=== PATIENT | male | born 1960 | race African-American/Black ===

== ENCOUNTER 2025-02-06 12:02 | Observation (INO) | payer MEDICARE ==
[~2025-02-06] VITALS: Ht 152.4 cm; Wt 88.6 kg
[2025-02-06] MEDS ORDERED: METO37.5 PO (12:20)
[2025-02-06 12:43] LABS: BASO # 0.1 10^3/uL (0.0-0.2); BASO % 0.5 % (0.0-1.0); EOS # 0.3 10^3/uL (0.0-0.5); EOS % 1.8 % (0.0-3.0); LYMPH # 3.1 10^3/uL (1.5-5.0); LYMPH % 16.9 % (24.0-44.0); MONO # 1.3 10^3/uL (0.0-0.8); MONO % 7.4 % (2.0-8.0); NEUTROPHILS # 13.1 10^3/uL (1.5-8.5); NEUTROPHILS % 73.0 % (36.0-66.0); PLATELET COUNT, AUTOMATED 582 10^3/uL (150-450)
[2025-02-06 13:09] LABS: ALT/SGPT < 9 U/L (7.0-40); AST/SGOT 14 U/L (<34); CALCIUM LEVEL 9.9 MG/DL (8.3-10.6); CARBON DIOXIDE LEVEL 22 MMOL/L (20-31); CHLORIDE LEVEL 101 MMOL/L (98-107); CREATININE FOR GFR 1.20 MG/DL (0.70-1.30); GLOMERULAR FILTRATION RATE 67.1 (>49); POTASSIUM SERUM 3.9 MMOL/L (3.5-5.1); SODIUM LEVEL 141 MMOL/L (136-145)
[2025-02-06] MEDS: ACETAMINOPHEN *IV* 1,000 MG in IV 1 EA IV ONE (15:52)
[2025-02-06] MEDS: NS (Normal Saline) 0.9% 1,000 ML IV ONE (15:53)
[2025-02-06 16:07] LABS: C REACTIVE PROTEIN QUANTITATIV 5.30 MG/DL (<1.0)
[2025-02-06 17:38] LABS: KETONE, URINE AUTO RFX 1+ mg/dL (NEGATIVE); MUCUS, URINE RFX SMALL (NEGATIVE); NITRITE, URINE AUTO RFX NEGATIVE (NEGATIVE); RBC, URINE AUTO RFX 2 /HPF (0-3); SQUAM EPITHELIAL CELL UR AURFX 1 /HPF (0-6)
[2025-02-06 19:01] LABS: LEUKOCYTE ESTERASE UR AUTO RFX TRACE (NEGATIVE); WBC, URINE AUTO RFX 20 /HPF (0-3)
[2025-02-06 22:45] VITALS: TEMP 97; O2SAT 100
[2025-02-06 23:30] VITALS: BP 177/94; TEMP 97; O2SAT 97
[2025-02-06] MEDS ORDERED: PILL CUTTER 1 EACH XX PRN (23:45)
[2025-02-06] MEDS: METOPROLOL TART 25 MG TABLET PO ONE (23:50)
[2025-02-07] VITALS (9 sets, daily range): BP systolic 138–177; BP diastolic 81–108; TEMP 96.5–97.6; O2SAT 99–100
[2025-02-07 06:10] LABS: CALCIUM LEVEL 9.6 MG/DL (8.3-10.6); CARBON DIOXIDE LEVEL 23.0 MMOL/L (20-31); CHLORIDE LEVEL 106.0 MMOL/L (98-107); CREATININE FOR GFR 1.04 MG/DL (0.70-1.30); GLOMERULAR FILTRATION RATE 79.7 (>49); POTASSIUM SERUM 4.4 MMOL/L (3.5-5.1); SODIUM LEVEL 144.0 MMOL/L (136-145)
[2025-02-07] MEDS ORDERED: GLUCAGON INJ 1 MG VIAL SC PRN (07:20)
[2025-02-07] MEDS ORDERED: GLUCOSE 4 GM CHEW PO PRN (07:20)
[2025-02-07] MEDS ORDERED: DEXTROSE 50% 50 ML SYRINGE IV PRN (07:20)
[2025-02-07 08:26] LABS: BASO # 0.1 10^3/uL (0.0-0.2); BASO % 0.6 % (0.0-1.0); EOS # 0.3 10^3/uL (0.0-0.5); EOS % 2.4 % (0.0-3.0); LYMPH # 2.3 10^3/uL (1.5-5.0); LYMPH % 18.3 % (24.0-44.0); MONO # 1.3 10^3/uL (0.0-0.8); MONO % 10.3 % (2.0-8.0); NEUTROPHILS # 8.5 10^3/uL (1.5-8.5); NEUTROPHILS % 67.9 % (36.0-66.0); PLATELET COUNT, AUTOMATED 538 10^3/uL (150-450)
[2025-02-07] MEDS ORDERED: METO1TAB7 PO (08:29)
[2025-02-07] MEDS ORDERED: HOME MED LIST COMPLETE! XX SCH (08:35)
[2025-02-07] MEDS ORDERED: METOPROLOL TART 12.5 MG PER 1/2 TAB PO SCH (09:00)
[2025-02-07] MEDS: DICLOFENAC EPOLAMINE 1.3% PATCH TOP SCH (09:27)
[2025-02-07] MEDS: METOPROLOL SUCC. 50 MG *XL* TAB PO SCH (09:27)
[2025-02-07] MEDS: PANTOPRAZOLE 40MG VIAL IV SCH (09:28)
[2025-02-07] MEDS: ACETAMINOPHEN 500 MG TAB PO SCH (09:28)
[2025-02-07] MEDS: ENOXAPARIN 40 MG/0.4 ML SYRINGE (J1650 PER 10MG) SC SCH (09:28)
[2025-02-07 10:31] LABS: IRON (FE) 19.0 UG/DL (65-175)
[2025-02-07 10:32] LABS: PERCENT SATURATION 12.4 % (19.7-50.0)
[2025-02-07] MEDS: KETOROLAC 30 MG/ML 1 ML VIAL IV SCH (10:33)
[2025-02-07 10:34] LABS: VITAMIN B12 LEVEL 1078.0 PG/ML (211-911)
[2025-02-08 04:00] VITALS: BP 137/83; TEMP 97; O2SAT 100
[2025-02-08 05:56] LABS: BASO # 0.0 10^3/uL (0.0-0.2); BASO % 0.3 % (0.0-1.0); EOS # 0.4 10^3/uL (0.0-0.5); EOS % 3.4 % (0.0-3.0); LYMPH # 2.1 10^3/uL (1.5-5.0); LYMPH % 18.0 % (24.0-44.0); MONO # 1.2 10^3/uL (0.0-0.8); MONO % 10.2 % (2.0-8.0); NEUTROPHILS # 7.9 10^3/uL (1.5-8.5); NEUTROPHILS % 67.6 % (36.0-66.0)
[2025-02-08 05:57] LABS: PLATELET COUNT, AUTOMATED 436 10^3/uL (150-450)
[2025-02-08 06:14] LABS: CALCIUM LEVEL 8.8 MG/DL (8.3-10.6); CARBON DIOXIDE LEVEL 25.0 MMOL/L (20-31); CHLORIDE LEVEL 107.0 MMOL/L (98-107); CREATININE FOR GFR 1.49 MG/DL (0.70-1.30); GLOMERULAR FILTRATION RATE 51.8 (>49); POTASSIUM SERUM 4.0 MMOL/L (3.5-5.1); SODIUM LEVEL 143.0 MMOL/L (136-145)
[2025-02-08] MEDS: predniSONE 20 MG TAB PO SCH (09:41)
[2025-02-08] MEDS: traMADol 50 MG TAB PO SCH (09:42)
[2025-02-08 12:00] VITALS: BP 115/72; TEMP 97.5; O2SAT 96
[2025-02-08 17:00] VITALS: BP_SYST 128; BP_SYST 133; BP_SYST 139; BP_DIAS 82; BP_DIAS 88; BP_DIAS 92
[2025-02-08] MEDS ORDERED: traMADol 50 MG TAB PO PRN (18:55)
[2025-02-08 20:00] VITALS: BP 130/91; TEMP 97; O2SAT 100
[2025-02-08] MEDS: ACETAMINOPHEN 500 MG TAB PO PRN (20:22)
[2025-02-09 04:00] VITALS: BP_SYST 137; BP_SYST 140; BP_SYST 158; BP_DIAS 75; BP_DIAS 84; BP_DIAS 90; TEMP 97; O2SAT 100
[2025-02-09 07:47] LABS: BASO # 0.0 10^3/uL (0.0-0.2); BASO % 0.3 % (0.0-1.0); EOS # 0.1 10^3/uL (0.0-0.5); EOS % 0.7 % (0.0-3.0); LYMPH # 1.9 10^3/uL (1.5-5.0); LYMPH % 16.5 % (24.0-44.0); MONO # 0.9 10^3/uL (0.0-0.8); MONO % 7.7 % (2.0-8.0); NEUTROPHILS # 8.3 10^3/uL (1.5-8.5); NEUTROPHILS % 74.4 % (36.0-66.0); PLATELET COUNT, AUTOMATED 440 10^3/uL (150-450)
[2025-02-09 08:15] LABS: CALCIUM LEVEL 8.6 MG/DL (8.3-10.6); CARBON DIOXIDE LEVEL 25.0 MMOL/L (20-31); CHLORIDE LEVEL 104.0 MMOL/L (98-107); CREATININE FOR GFR 1.64 MG/DL (0.70-1.30); GLOMERULAR FILTRATION RATE 46.1 (>49); POTASSIUM SERUM 4.3 MMOL/L (3.5-5.1); SODIUM LEVEL 141.0 MMOL/L (136-145)
[2025-02-09 12:00] VITALS: BP_SYST 135; BP_SYST 144; BP_SYST 159; BP_DIAS 76; BP_DIAS 86; BP_DIAS 88; TEMP 97.8; O2SAT 100
[2025-02-09 19:36] VITALS: BP 160/95; TEMP 97.1; O2SAT 99
[2025-02-09 21:45] VITALS: BP 154/94
[2025-02-10 03:52] VITALS: BP 152/88; TEMP 97; O2SAT 100
[2025-02-10 06:02] LABS: BASO # 0.0 10^3/uL (0.0-0.2); BASO % 0.1 % (0.0-1.0); EOS # 0.0 10^3/uL (0.0-0.5); EOS % 0.1 % (0.0-3.0); LYMPH # 1.4 10^3/uL (1.5-5.0); LYMPH % 15.9 % (24.0-44.0); MONO # 0.6 10^3/uL (0.0-0.8); MONO % 6.5 % (2.0-8.0); NEUTROPHILS # 6.9 10^3/uL (1.5-8.5); NEUTROPHILS % 76.8 % (36.0-66.0); PLATELET COUNT, AUTOMATED 418 10^3/uL (150-450)
[2025-02-10 06:34] LABS: CALCIUM LEVEL 8.7 MG/DL (8.3-10.6); CARBON DIOXIDE LEVEL 26.0 MMOL/L (20-31); CHLORIDE LEVEL 108.0 MMOL/L (98-107); CREATININE FOR GFR 1.29 MG/DL (0.70-1.30); GLOMERULAR FILTRATION RATE 61.5 (>49); POTASSIUM SERUM 4.1 MMOL/L (3.5-5.1); SODIUM LEVEL 144.0 MMOL/L (136-145)
[2025-02-10 08:41] VITALS: BP 178/90
[2025-02-10 12:00] VITALS: BP 166/87; TEMP 97.9; O2SAT 96
[2025-02-10] MEDS ORDERED: ACET-907 PO (12:03)
[2025-02-10] MEDS ORDERED: DICL100G10 TOP (12:03)
[2025-02-10] MEDS ORDERED: IBUP-1114 PO (12:03)
== END 2025-02-10 13:20 | disposition home or self-care (01) ==
LOC: M ED 12:02 → EDBD 12:02 → M ED INP 12:03 → M MS4PR 22:45
PROVIDERS: ADMIT Student in an Organized Health Care Education/Training Program; ATTEND Internal Medicine Nephrology
DX: R55 Syncope and collapse (principal); N17.9 Acute kidney failure, unspecified; R63.8 Other symptoms and signs concerning food and fluid intake; R11.0 Nausea; D64.9 Anemia, unspecified; E16.2 Hypoglycemia, unspecified; D72.829 Elevated white blood cell count, unspecified; M17.0 Bilateral primary osteoarthritis of knee; M25.561 Pain in right knee; R82.4 Acetonuria; R80.9 Proteinuria, unspecified; I10 Essential (primary) hypertension; M10.9 Gout, unspecified; M25.461 Effusion, right knee; Z79.899 Other long term (current) drug therapy
CPT/HCPCS: 36415; 70450; 71045; 73564; 80048; 80076; 81001; 82607; 82728; 82746; 83550; 84145; 84443; 85025; 86140; 87086; 87486; 87581; 87633; 87798; 93005; 93306; 93880; 96365; 96372; 96375; 96376; 97110; 97116; 97161; 97530; 99285; G0378; J0131; J1650; J1885; J2470; J7512

== ENCOUNTER 2025-03-07 11:01 | Emergency (ER) | payer MEDICARE ==
[~2025-03-07] VITALS: Ht 182.9 cm; Wt 80.5 kg
[~2025-03-07 11:01] MED LIST: ACET-907 PO; DICL100G10 TOP; IBUP-1114 PO; METO1TAB7 PO; METO37.5 PO
[2025-03-07 11:58] LABS: BASO # 0.1 10^3/uL (0.0-0.2); BASO % 0.5 % (0.0-1.0); EOS # 0.3 10^3/uL (0.0-0.5); EOS % 2.5 % (0.0-3.0); LYMPH # 1.8 10^3/uL (1.5-5.0); LYMPH % 15.3 % (24.0-44.0); MONO # 0.8 10^3/uL (0.0-0.8); MONO % 7.2 % (2.0-8.0); NEUTROPHILS # 8.5 10^3/uL (1.5-8.5); NEUTROPHILS % 74.2 % (36.0-66.0); PLATELET COUNT, AUTOMATED 458 10^3/uL (150-450)
[2025-03-07 12:20] LABS: CK-MB VALUE MASS < 1.0 NG/ML (<3.6)
[2025-03-07 12:22] LABS: CALCIUM LEVEL 9.2 MG/DL (8.3-10.6); CARBON DIOXIDE LEVEL 26 MMOL/L (20-31); CHLORIDE LEVEL 107 MMOL/L (98-107); CREATININE FOR GFR 1.31 MG/DL (0.70-1.30); GLOMERULAR FILTRATION RATE 60.4 (>49); MAGNESIUM LEVEL 1.4 MG/DL (1.8-2.4); POTASSIUM SERUM 4.3 MMOL/L (3.5-5.1); SODIUM LEVEL 145 MMOL/L (136-145)
[2025-03-07 12:25] LABS: FREE T4 1.22 NG/DL (0.89-1.76)
[2025-03-07 12:26] LABS: CPK CREATINE PHOSPHOKINASE 20 U/L (46-171)
[2025-03-07] MEDS: NS 500 ML IV ONE (12:58)
[2025-03-07] MEDS: MAG SULF 1GM/100ML (MAG RUN) 1 GM in IV 1 EA IV ONE (14:07)
[2025-03-07 14:24] LABS: CK-MB VALUE MASS < 1.0 NG/ML (<3.6)
[2025-03-07 14:28] LABS: CPK CREATINE PHOSPHOKINASE < 15 U/L (46-171)
[2025-03-07] MEDS ORDERED: HOLTER MONITOR XX (16:12)
[2025-03-07 16:16] VITALS: BP 157/99; TEMP 97.9; O2SAT 97
[2025-03-07] MEDS: ACETAMINOPHEN 325 MG TAB PO ONE (16:31)
== END 2025-03-07 16:53 | disposition home or self-care (01) ==
LOC: M ED 11:01 → EDBD 11:01 → M ED 16:53
DX: R55 Syncope and collapse (principal); I10 Essential (primary) hypertension; Z79.1 Long term (current) use of non-steroidal anti-inflammatories (NSAID); Z79.899 Other long term (current) drug therapy
CPT/HCPCS: 80048; 82550; 82553; 83735; 84439; 84443; 84484; 85025; 93005; 93041; 94760; 96365; 96366; 99285; J3475